=== PATIENT | male | born 1995 | race African-American/Black ===

== ENCOUNTER → 2019-07-30 08:54 | Outpatient (CLI) | payer OTHER, SELFPAY ==
--- NOTE | 2019-07-30 | DI.MRI.S_ITS ---
PROCEDURE: MR KNEE LT WO CON INDICATIONS: Pain in left knee TECHNIQUE: Noncontrast sagittal PD fast spin echo and T2 fast spin echo with fat saturation, sagittal 3-D FLASH with fat saturation; coronal T1 spin echo and PD fast spin echo with fat saturation, and axial PD fast spin echo with fat saturation through the knee. COMPARISON: None. FINDINGS: Image quality: Excellent. Menisci: Circumferential medial meniscal tear involving the anterior horn, body, posterior horn and possibly the anterior root. There is slight partial extrusion. Lateral meniscus intact. Cruciate ligaments: Anterior cruciate ligament nonvisualized in keeping with complete rupture however this is likely chronic given the absence of associated inflammatory changes. There is also uncovering of the posterior horn of lateral meniscus, a finding seen in the setting of ACL insufficiency Posterior cruciate ligament appears intact. Medial structures: The medial collateral ligament appears intact. Semimembranosus tendon appears intact. Visualized portions of the pes anserinus tendons appear normal. No abnormal bursal fluid. Lateral structures: The lateral collateral ligament intact. Biceps femoris tendon appears intact. Popliteus tendon grossly unremarkable. Iliotibial band appears intact. Anterior structures: Quadriceps tendon intact. Medial patellofemoral ligament appears intact. There is probably chronic subacute thickening of the patellar attachment of the lateral patellofemoral ligament. Patellar tendon appears intact. Hoffa's fat pad unremarkable. Bones and cartilage: No focal marrow contusion or discrete low signal fracture line. Within the medial compartment, small full-thickness defect of the medial femoral condyle central articular cartilage seen on image 22/10. There is adjacent subchondral marrow edema. The tibial cartilage appears grossly intact Within the lateral compartment, mild partial-thickness loss of the central femoral articular cartilage. The tibial cartilage appears intact Within the patellofemoral compartment, mild intrasubstance signal change involving the central trochlear cartilage. The patellar cartilage appears grossly intact although there is mild subchondral marrow edema image 12/5 involving the the medial facet Joint space: No joint effusion. Tiny sub-5 mm Castillo's cyst. Possible 5 mm loose body seen in the intercondylar notch region image 82/8. Small ganglion cyst at the proximal tibiofibular articulation. IMPRESSION: Circumferential medial meniscal tear with slight partial extrusion Complete rupture of the anterior cruciate ligament, probably chronic finding Age indeterminate sprain of the patellar attachment of the lateral patellofemoral ligament. Small central full-thickness central medial femoral condyle cartilage defect with underlying marrow edema. Tiny Castillo cyst Minimal subchondral marrow edema involving the medial patellar facet Subcentimeter loose body seen in the intercondylar notch Dictated by: Donavan Osorio M.D. on 07/30/2019 at 10:04 Approved by: Donavan Osorio M.D. on 07/30/2019 at 10:13
== END ==
PROVIDERS: Referring Provider Student in an Organized Health Care Education/Training Program; Visit Provider Student in an Organized Health Care Education/Training Program
DX: M25.562 Pain in left knee (principal); S83.242A Other tear of medial meniscus, current injury, left knee, initial encounter; S83.512A Sprain of anterior cruciate ligament of left knee, initial encounter
CPT/HCPCS: 73721